=== PATIENT | male | born 1950 | race Two or more races ===

== ENCOUNTER 2020-05-23 15:51 | Emergency (ER) | payer MEDICARE, BC ==
[~2020-05-23] VITALS: Ht 177.8 cm; Wt 92.1 kg
--- NOTE | 2020-05-23 15:51 | NUR ---
PT JAYLA 80 FROM [facility] C/O CHEST PAIN PRESSURE LIKE NON RADIATING. NTG SPRAY GIVEN BY [employer]. 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 WILL CONTINUE TO MONITOR.
--- NOTE | 2020-05-23 16:00 | NUR ---
BLOOD DRAWN AND SENT TO LAB.
--- NOTE | 2020-05-23 16:02 | NUR ---
SEEN AND EXAMINED BY .
[2020-05-23 16:14] LABS: BASOPHILS # (AUTO) 0.1 /CMM (0.0-0.2); BASOPHILS % (AUTO) 0.9 % (0.0-2.0); EOSINOPHILS % (AUTO) 2.4 % (0.0-6.0); HEMATOCRIT 46 % (39-51); HEMOGLOBIN 15.7 g/dL (13.5-17.5); LYMPHOCYTES % (AUTO) 31.5 % (20.0-44.0); MEAN CORPUSCULAR HGB CONC 34 g/dl (31.0-36.0); MEAN CORPUSCULAR VOLUME 93 fL (80-96); MONOCYTES # (AUTO) 0.4 /CMM (0.1-1.30); MONOCYTES % (AUTO) 6.8 % (2.0-12.0); NEUTROPHILS # (AUTO) 3.7 /CMM (1.8-8.9); NEUTROPHILS % (AUTO) 58.4 % (43.0-81.0); PLATELET COUNT (AUTO) 187 /CMM (150-450); RED BLOOD CELL COUNT(AUTO) 4.96 MIL/uL (4.5-6.0); WHITE BLOOD COUNT (AUTO) 6.3 K/uL (4.3-11.0)
[2020-05-23 16:39] LABS: CALCIUM, SERUM 8.4 mg/dL (8.5-10.1); CARBON DIOXIDE 29 mmol/L (21-32); CHLORIDE 103 mmol/L (98-107); CREATININE 1.1 mg/dL (0.6-1.3); GLUCOSE 102 mg/dL (74-106); SODIUM SERUM 139 mmol/L (136-145); UREA NITROGEN, BLOOD 21 mg/dL (7-18)
--- NOTE | 2020-05-23 19:21 | NUR ---
AWAITING FOR LAB TO REDRAW
--- NOTE | 2020-05-23 19:21 | NUR ---
PT AMBULATED TO THE RESTROOM
--- NOTE | 2020-05-23 20:18 | NUR ---
Patient discharged to home in stable condition. Written and verbal after care instructions given. Patient verbalizes understanding of instruction. Pt denies pain. VSS. Ambulated with steady gait.
--- NOTE | 2020-05-23 20:18 | NUR ---
IV removed. Catheter intact and site benign. Pressure and 4x4 applied to site. No bleeding noted.
[2020-05-23 20:19] VITALS: BP 122/79
== END 2020-05-23 20:28 | disposition home or self-care (01) ==
LOC: ER 15:57
DX: R07.89 Other chest pain (principal); F41.9 Anxiety disorder, unspecified; I10 Essential (primary) hypertension; E78.5 Hyperlipidemia, unspecified; Z98.890 Other specified postprocedural states
CPT/HCPCS: 36415; 71045-TC; 80048-TC; 84484-TC; 85025-TC